=== PATIENT | female | born 2000 | race African-American/Black ===

== ENCOUNTER 2025-06-27 17:51 | Emergency (ER) | payer OTHER ==
[2025-06-27 18:19] LABS: Glucose, Urine (Dipstick) Normal (Negative); Leukocyte 500 (Negative); Protein, Urine (Dipstick) 100 mg/dl (Neg-Trace); Specific Gravity, Urine 1.020 (1.005-1.030)
[2025-06-27 18:23] LABS: Pregnancy Test - Urine (BHCG) Negative (Negative); Pregu Control Background? CLEAR/WHITE (CLR/WHITE); Pregu Control Bar Appear? YES (CONTROL BAR)
[2025-06-27 18:32] LABS: Bacteria/HPF 4+ HPF (None Seen); CAUTI Indications for Culture Acute Hematuria; RBC/HPF Greater than 50 HPF (0-3); WBC/HPF Greater Than 50 HPF (0-3)
[2025-06-27 18:33] LABS: Urine Culture Reflex Yes Yes
[2025-06-27] MEDS ORDERED: Ibuprofen 200 MG TAB ONE (19:13)
== END 2025-06-27 19:28 | disposition home or self-care (01) ==
LOC: CSHERS 17:51
DX: N39.0 Urinary tract infection, site not specified (principal)
CPT/HCPCS: 81001; 81025; 87077; 87086; 87186; 99284